=== PATIENT | female | born 1975 | race Caucasian/White ===

== ENCOUNTER 2022-04-04 10:03 | Emergency (ER) | payer SELFPAY ==
--- NOTE | ~2022-04-04 | XR_ITS ---
EXAMINATION: XR chest 2V DATE: 04/04/2022 10:34 INDICATION: Cough. TECHNIQUE: Frontal and lateral views of the chest were obtained. COMPARISON: None. FINDINGS: There is mild scarring at the lung apices. No pleural effusion or pneumothorax. The heart s ize is normal. Breast implants are noted. IMPRESSION: 1. Mild scarring at the lung apices. Reviewed, dictated and finalized at location A. D SPECIALIST
[2022-04-04 10:10] VITALS: BP 118/79; PULSE 76; RESP 16; TEMP 37.1; O2SAT 100
--- NOTE | 2022-04-04 10:20 | ED.URI ---
HPI - URI/Sore Throat General Chief Complaint: Upper Respiratory Infection Stated Complaint: Cough, Weakness Time Seen by Provider: 04/04/22 10:20 Source: patient Mode of arrival: ambulatory Limitations: no limitations History of Present Illness HPI Narrative: 46-year-old female presents with complaint of nasal congestion, cough for 4 days. Reports today she started to feel that her congestion went into her lungs. States lungs are snapping . Denies shortness of breath. Patient is a current everyday smoker. All systems reviewed and negative except as noted above. Related Data Allergies Allergy/AdvReac Type Severity Reaction Status Date / Time No Known Allergies Allergy Verified 04/04/22 10:21 Review of Systems Review of Systems: CONSTITUTIONAL: Denies fever, chills, or sweats. EYES: Denies visual changes, redness, or discharge. ENT: Reports rhinorrhea, congestion. Denies sore throat, or otalgia. CARDIOVASCULAR: Denies chest pain, palpitations, or edema. RESPIRATORY: reports cough. Denies dyspnea. GASTROINTESTINAL: Denies abdominal pain, nausea, vomiting, or diarrhea. GENITOURINARY: Denies dysuria or hematuria. SKIN: Denies rash or itching. MUSCULOSKELETAL: Denies back pain, joint pain, or myalgia. NEUROLOGIC: Denies headache, numbness, or weakness. PSYCHIATRIC: Denies anxiety or depression. All other systems reviewed are negative, except as documented in HPI. PMFSH Comments At time of signature, agree with nursing past medical, surgical, social and family history. There is no relevant family history pertinent to the presenting complaint. Exam Narrative: GENERAL: This is a well-nourished, well-developed patient, in no apparent distress. HEAD: normocephalic, atraumatic. EYES: PERRL. Sclera clear/white. Vision is grossly intact. EARS: External ears normal, auditory canals clear and without drainage, TMs normal without perforation. Hearing grossly intact. NOSE: External nose normal with clear nasal drainage. THROAT: Mucous membranes moist, posterior pharynx clear. NECK: Neck supple, non-tender without lymphadenopathy, masses or thyromegaly. CARDIOVASCULAR: Regular rate and rhythm without murmurs, gallops, or rubs. RESPIRATORY: Coarse lung sounds throughout all lung [place].. No wheezes, rales. SKIN: warm, Dry, intact with no suspicious lesions or rash, good texture and turgor. NEURO: awake, alert, and oriented to person, place and time. There were no obvious focal neurologic abnormalities. EXTREMITIES: No joint tenderness, effusion, or edema noted. Course Course Level of Care: Express Care Visit Vital Signs Vital signs: Vital Signs Temperature 37.1 C 04/04/22 10:10 Pulse Rate 76 04/04/22 10:10 Respiratory Rate 16 04/04/22 10:10 Blood Pressure 118/79 04/04/22 10:10 Pulse Oximetry 100 04/04/22 10:10 Oxygen Delivery Room Air 04/04/22 10:10 Temperature 37.1 C 04/04/22 10:10 Pulse Rate 76 04/04/22 10:10 Respiratory Rate 16 04/04/22 10:10 Blood Pressure 118/79 04/04/22 10:10 Pulse Oximetry 100 04/04/22 10:10 Oxygen Delivery Room Air 04/04/22 10:10 Reviewed MDM - URI/Sore Throat MDM Narrative Medical decision making narrative: Patient is aware of diagnosis, understands and agrees to treatment plan. Anticipatory guidance given. Patient agrees to follow-up as directed and is aware of reasons to seek care at the emergency department. Portions of this record may have been created with voice recognition software discussed x-ray results with patient. Negative for pneumonia. Will treat patient with steroids and albuterol due to coarse lung sounds. Differential Diagnosis Differential diagnosis: Likely upper respiratory infection, viral infection and bronchitis Imaging Data My impression: Agree with radiologist Radiologist's impression: IMPRESSION: 1. Mild scarring at the lung apices. Discharge Plan Discharge Clinical Impression: Viral upper res
== END 2022-04-04 10:49 | disposition home or self-care (01) ==
PROVIDERS: Emergency Provider Nurse Practitioner Family
DX: J06.9 Acute upper respiratory infection, unspecified (principal)
CPT/HCPCS: 71046; 99203; G0463

== ENCOUNTER 2023-04-20 09:51 | Emergency (ER) | payer SELFPAY ==
[2023-04-20 10:17] VITALS: BP 128/83; PULSE 65; RESP 20; TEMP 37.4; O2SAT 97
--- NOTE | 2023-04-20 10:29 | ED.URI ---
HPI - URI/Sore Throat General Chief Complaint: Upper Respiratory Infection Stated Complaint: Sinus History of Present Illness HPI Narrative: 47 y/o female presented for c/o cough, body aches, runny nose x5 days. Taking Mucinex and ibuprofen. Denies sob, wheezing, n/v/d/f/c. Smokes cannabis. Related Data Allergies Allergy/AdvReac Type Severity Reaction Status Date / Time No Known Allergies Allergy Verified 04/20/23 10:16 Review of Systems Review of Systems: CONSTITUTIONAL: Denies body aches, fever, chills, or sweats. EYES: Denies visual changes, redness, or discharge. ENT: Reports rhinorrhea, congestion, otalgia. CARDIOVASCULAR: Denies chest pain, palpitations, or edema. RESPIRATORY: Denies dyspnea. GASTROINTESTINAL: Denies abdominal pain, nausea, vomiting, or diarrhea. SKIN: Denies rash, itching, or wounds. MUSCULOSKELETAL: Denies back pain, joint pain, or myalgia. NEUROLOGIC: Denies headache [facility] Past Medical History Medical History (Updated 04/20/23 @ 10:41 by Barbara Cornell, [employer]) No pertinent past medical history Exam Narrative: GENERAL: well-appearing, no acute distress. EYES: conjunctivae clear ENT: Mucous membranes moist. TMs pearly mejia with normal light reflex bilaterally; no tragal tenderness. Oropharynx mildly erythematous without lesions. Tonsils not enlarged and without exudate. No drooling, no hoarseness, no trismus, uvula midline. No tripod positioning, hot potato voice, or soft palate swelling. NECK: Supple. No lymphadenopathy CHEST: Clear to auscultation, breath sounds equal. No respiratory distress, speaks in full sentences. HEART: Regular rate and rhythm. No murmur heard. SKIN: Warm, dry, no rash. NEURO: Alert and oriented x3. Course Course Emergency Course: Patient is aware of diagnosis, understands and agrees to treatment plan. Anticipatory guidance given. Patient agrees to follow-up as directed and is aware of reasons to seek care at the emergency department. Portions of this record may have been created with voice recognition software Level of Care: Express Care Visit Vital Signs Vital signs: Vital Signs Temperature 99.3 F 04/20/23 10:17 Pulse Rate 65 04/20/23 10:17 Respiratory Rate 20 04/20/23 10:17 Blood Pressure 128/83 04/20/23 10:17 Pulse Oximetry 97 04/20/23 10:17 Oxygen Delivery Room Air 04/20/23 10:17 Temperature 99.3 F 04/20/23 10:17 Pulse Rate 65 04/20/23 10:17 Respiratory Rate 20 04/20/23 10:17 Blood Pressure 128/83 04/20/23 10:17 Pulse Oximetry 97 04/20/23 10:17 Oxygen Delivery Room Air 04/20/23 10:17 MDM - URI/Sore Throat MDM Narrative Medical decision making narrative: neg flu, covid, strep result reviewed with pt. Advise supportive treatments. Patient is appropriate for outpatient treatment and follow-up. Differential Diagnosis Differential diagnosis: Likely upper respiratory infection, viral infection and pharyngitis Lab Data Labs: Influenza A Screen Negative Reference Range: Negative Influenza B Screen Negative Reference Range: Negative Strep Screen Presumptive Negative *(Reference Range: Negative)* Discharge Plan Discharge Clinical Impression: Upper respiratory infection Qualifiers: URI type: unspecified URI Qualified Code(s): J06.9 - Acute upper respiratory infection, unspecified Patient Disposition: Home, Self-Care Condition: Stable Instructions: Antibiotic Form, Upper Respiratory Infection (ED) Additional Instructions: COVID and flu negative. Rapid strep swab was negative today You will be notified in a few days if the culture comes back positive for strep, and appropriate antibiotics will be called in at that time. if symptoms are due to a viral illness, it is not treated with antib
== END 2023-04-20 10:45 | disposition home or self-care (01) ==
PROVIDERS: Emergency Provider Nurse Practitioner Family
DX: J06.9 Acute upper respiratory infection, unspecified (principal); Z20.822 Contact with and (suspected) exposure to COVID-19
CPT/HCPCS: 87081; 87426; 87804; 87880; 99213; C9803; G0463